=== PATIENT | female | born 1970 | race Caucasian/White ===

== ENCOUNTER 2017-01-17 16:09 | Emergency (ER) | payer OTHER ==
--- NOTE | 2017-01-17 16:50 | DIAGNOSTIC IMAGING REPORT ---
PROCEDURE: CT HEAD WITHOUT CONTRAST INDICATION: STROKE TECHNIQUE: Noncontrast axial images with sagittal and coronal reformations. COMPARISON: None. FINDINGS: Sulci, ventricular system, and brain parenchyma are normal. Bilateral basal ganglia dystrophic calcifications. No evidence of acute intracranial process. Visualized mastoids and sinuses are clear. IMPRESSION: 1. Negative non-enhanced head CT. 2. Findings discussed with Dr. Frazier at 04:39 p.m., [place] Standard Time
--- NOTE | 2017-01-17 16:51 | DIAGNOSTIC IMAGING REPORT ---
PROCEDURE: XR CHEST 1 VIEW INDICATION: CHEST PAIN. STROKE SYMPTOMS. TECHNIQUE: Portable AP view 04:42 p.m. COMPARISON: None. FINDINGS: Lungs are clear. Heart and mediastinum are normal. Thorax is normal. IMPRESSION: 1. Negative chest.
--- NOTE | 2017-01-17 17:34 | DIAGNOSTIC IMAGING REPORT ---
PROCEDURE: CTA HEAD AND NECK INDICATION: CHEST PAIN AND STROKE SYMPTOMS TECHNIQUE: 112 ml of Isovue 370 injected intravenously and axial images were obtained from the vertex through the upper mediastinum with 3D sagittal and coronal MIP reconstructions. COMPARISON: Head CT 01/17/2017. FINDINGS: AORTIC ARCH: Normal. RIGHT CAROTID SYSTEM: Normal. No evidence of dissection. LEFT CAROTID SYSTEM: Minor calcified plaque formation without stenosis. No evidence of dissection. VERTEBROBASILAR SYSTEM: Dominant left vertebral artery. INTRACRANIAL ANTERIOR CIRCULATION: Normal. No evidence of stenosis, occlusion or aneurysm. INTRACRANIAL POSTERIOR CIRCULATION: Normal. No evidence of stenosis, occlusion or aneurysm. IMPRESSION: 1. Minor calcified plaque formation of the left carotid bifurcation 2. Otherwise negative study 3. Results discussed with Dr. Frazier All CT scans at this facility use dose modulation, iterative reconstruction, and/or weight-based dosing when appropriate to reduce radiation dose to as low as reasonably achievable.
--- NOTE | 2017-01-17 17:41 | DIAGNOSTIC IMAGING REPORT ---
PROCEDURE: CTA THORAX WITH CONTRAST INDICATION: CHEST PAIN AND STROKE SYMPTOMS TECHNIQUE: 72 ml of Isovue 370 was injected intravenously and axial images were obtained of the entire thorax with 3D sagittal and coronal MIP reconstructions. COMPARISON: Chest x-ray 01/17/2017 FINDINGS: Normal thoracic aorta without dissection or aneurysm. Normal pulmonary arteries. Normal coronaries. Heart size is normal. Lungs are clear. No adenopathy or effusion. Calcified gallstones. Mild to moderate degenerative changes of the spine. IMPRESSION: 1. Normal CTA of the chest 2. Cholelithiasis 3. Results discussed with Dr. Frazier
--- NOTE | 2017-01-17 18:05 | ED ORDER SUMMARY ---
..... 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) (CP) (16:17 01/17/2017 Edmundo Ortiz) (Ack 16:18 LMuller) (16:36 JRomanelli R.N.) Troponin-I Urgent (16:18 01/17/2017 Edmundo Ortiz) (Ack 16:18 LMuller) (16:36 omanelli R.N.) Ammonia Level Urgent (16:18 01/17/2017 Edmundo Ortiz) (Ack 16:18 LMuller) (17:07 Sergio R.N.) TSH Urgent (16:18 01/17/2017 Edmundo Ortiz) (Ack 16:18 LMuller) (16:36 omanelli R.N.) Urine Drug Screen Urgent (16:18 01/17/2017 Edmundo Ortiz) (Ack 16:18 LMuller) (16:35 omanelli R.N.) D-Dimer Urgent (16:18 01/17/2017 Edmundo Ortiz) (Ack 16:18 LMuller) (16:35 Anaelli R.N.) EKG - ER Stat (16:18 01/17/2017 Edmundo Ortiz) (Ack 16:18 LMuller) (16:34 omanelli R.N.) Pulse oximeter (16:18 01/17/2017 Edmundo Ortiz) (Ack 16:18 LMuller) (16:35 omanelli R.N.) POC Glucose (16:18 01/17/2017 Edmundo Ortiz) (Ack 16:18 LMuller) (17:07 Sergio R.N.) CTA Head and Neck (No) (N/A) Urgent (16:41 01/17/2017 Edmundo Ortiz) (Ack 16:45 LMuller) (18:13 MCampbell) CTA Thorax w Cont (No) (N/A) Urgent (16:41 01/17/2017 Edmundo Ortiz) (Ack 16:45 LMuller) (17:41 Sergio R.N.) Cardiac Panel Stat (17:06 01/17/2017 Sergio Trivedi verbal order read back to Edmundo Ortiz) (17:08 LMuller) Troponin-I (redraw 2 hours after first trop drawn) Urgent (17:40 01/17/2017 Edmundo Ortiz) (Ack 17:46 LMuller) (18:29 LMuller) MEDICATION ORDERS: Enalaprilat IV 1.25 mg (HIGH ALERT MEDICATION, NOW) (16:51 01/17/2017 Edmundo Ortiz) (17:08 Sergio Munguia.N.) IV FLUIDS: IV Saline Lock (16:18 01/17/2017 Edmundo Ortiz) (16:35 Sergio Munguia.Nadia.) Labetalol IV 20 mg (HIGH ALERT MEDICATION, NOW) (16:25 01/17/2017 Edmundo Ortiz) (16:45 Sergio BrianN.) Morphine IV 4 mg (HIGH ALERT MEDICATION, NOW) (16:46 01/17/2017 Edmundo Ortiz) (17:09 Sergio R.N.) Esmolol Drip IV : initial bolus 500 mcg/kg, then 50 mcg/kg/min (HIGH ALERT MEDICATION, NOW, TITRATE) (max 300 mcg/min for drip) (16:47 01/17/2017 Edmundo Ortiz) (Cancelled: Physician Order20:17 Sergio R.N.) Labetalol IV 20 mg (HIGH ALERT MEDICATION, NOW) (17:34 01/17/2017 Edmundo Ortiz) (17:41 Sergio R.N.) TPA Protocol (Stroke) 0.9 mg/kg (HIGH ALERT MEDICATION, NOW, Stroke 0.9 mg/kg, Max Dose is 90mg, Bolus-10% of total dose given over 1min, Infusion-remaining 90% of total dose given over 59) (18:04 01/17/2017 Edmundo rOtiz) (18:09 Sergio Trivedi) ORDER SHEET NOTES: [Electronically signed by Kenroy Haas R.N. (20:01/17/2017)] [Electronically signed by Delbert Frazier Dr. (13:11 01/21/2017)] [Electronically locked/signed by Kenroy Haas R.N. (20:01/17/2017)]
--- NOTE | 2017-01-17 18:05 | ED ORDER SUMMARY ---
..... 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) (CP) (16:17 01/17/2017 Edmundo Ortiz) (Ack 16:18 LMuller) (16:36 JRomanelli R.N.) Troponin-I Urgent (16:18 01/17/2017 Edmundo Ortiz) (Ack 16:18 LMuller) (16:36 omanelli R.N.) Ammonia Level Urgent (16:18 01/17/2017 Edmundo Ortiz) (Ack 16:18 LMuller) (17:07 Sergio R.N.) TSH Urgent (16:18 01/17/2017 Edmundo Ortiz) (Ack 16:18 LMuller) (16:36 omanelli R.N.) Urine Drug Screen Urgent (16:18 01/17/2017 Edmundo Ortiz) (Ack 16:18 LMuller) (16:35 omanelli R.N.) D-Dimer Urgent (16:18 01/17/2017 Edmundo Ortiz) (Ack 16:18 LMuller) (16:35 Anaelli R.N.) EKG - ER Stat (16:18 01/17/2017 Edmundo Ortiz) (Ack 16:18 LMuller) (16:34 omanelli R.N.) Pulse oximeter (16:18 01/17/2017 Edmundo Ortiz) (Ack 16:18 LMuller) (16:35 omanelli R.N.) POC Glucose (16:18 01/17/2017 Edmundo Ortiz) (Ack 16:18 LMuller) (17:07 Sergio R.N.) CTA Head and Neck (No) (N/A) Urgent (16:41 01/17/2017 Edmundo Ortiz) (Ack 16:45 LMuller) (18:13 MCampbell) CTA Thorax w Cont (No) (N/A) Urgent (16:41 01/17/2017 Edmundo Ortiz) (Ack 16:45 LMuller) (17:41 Sergio R.N.) Cardiac Panel Stat (17:06 01/17/2017 Sergio Trivedi verbal order read back to Edmundo Ortiz) (17:08 LMuller) Troponin-I (redraw 2 hours after first trop drawn) Urgent (17:40 01/17/2017 Edmundo Ortiz) (Ack 17:46 LMuller) (18:29 LMuller) MEDICATION ORDERS: Enalaprilat IV 1.25 mg (HIGH ALERT MEDICATION, NOW) (16:51 01/17/2017 Edmundo Ortiz) (17:08 Sergio Munguia.N.) IV FLUIDS: IV Saline Lock (16:18 01/17/2017 Edmundo Ortiz) (16:35 Sergio Munguia.Nadia.) Labetalol IV 20 mg (HIGH ALERT MEDICATION, NOW) (16:25 01/17/2017 Edmundo Ortiz) (16:45 Sergio BrianN.) Morphine IV 4 mg (HIGH ALERT MEDICATION, NOW) (16:46 01/17/2017 Edmundo Ortiz) (17:09 Sergio R.N.) Esmolol Drip IV : initial bolus 500 mcg/kg, then 50 mcg/kg/min (HIGH ALERT MEDICATION, NOW, TITRATE) (max 300 mcg/min for drip) (16:47 01/17/2017 Edmundo Ortiz) (Cancelled: Physician Order20:17 Sergio R.N.) Labetalol IV 20 mg (HIGH ALERT MEDICATION, NOW) (17:34 01/17/2017 Edmundo Ortiz) (17:41 Sergio R.N.) TPA Protocol (Stroke) 0.9 mg/kg (HIGH ALERT MEDICATION, NOW, Stroke 0.9 mg/kg, Max Dose is 90mg, Bolus-10% of total dose given over 1min, Infusion-remaining 90% of total dose given over 59) (18:04 01/17/2017 Edmundo Ortiz) (18:09 Sergio Trivedi) ORDER SHEET NOTES: [Electronically signed by Kenroy Haas R.N. (20:01/17/2017)] [Electronically signed by Delbert Frazier Dr. (13:11 01/21/2017)] [Electronically locked/signed by Kenroy Haas R.N. (20:01/17/2017)]
--- NOTE | 2017-01-17 18:05 | ED NURSING NOTES ---
Clinical Report - Nurses [facility] [address] [place] [address] 01/17/2017 16:14 Patient: ELIZA MEDRANO TRIAGE Triage time 16:15 Jan 17 2017. Acuity: LEVEL 3. Chief Complaint: ALTERED MENTAL STATUS. Alert. UMER COMA SCORE: [place] Coma Scale: 14- eyes open spontaneously (4); best verbal response- oriented x 4 (5); best motor response- localizes to pain (5). --16:31 Kenroy Haas R.N. 16:21 01/17/17. BP: 192/88. HR: 71. RR: 16. O2 saturation: 99% on room air. Temp: 98.1 F. Pain level now: 03/07. Additional comments: ESPINOSA pain. --16:31 Kenroy Haas R.N. <<STRICKEN ENTRY-- 16:20. --16:32 Kenroy Haas R.N. --END STRIKE>> Correction --16:32 Kenroy Haas R.N. Weight: 106.5 kg stated. Height/Length: 62 inches Per Patient. BMI: 43. --16:25 Kenroy Haas R.N. Medications Albuterol Sulfate Inhalation 2 puffs, PRN. --16:26 Kenroy Haas R.N. Medication/allergy information source: the patient. --16:31 Kenroy Haas R.N. Allergies Silver Nitrate. --16:27 Kenroy Haas R.N. Amoxicillin. --16:27 Kenroy Haas R.N. History Arrived by private vehicle. Historian: patient. Accompanied by spouse. ( Altered Mentation first noticed by her ~ 3 hours ago.). This started about 3 hours ago. She has had weakness and mild trouble walking. 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 PAST MEDICAL HX: Hypertension. Immunizations: status is unknown. ( Asthma). SURGERY HX: ( Bilat Ankles). SOCIAL HX: Never smoker. Alcohol use; consumes two wine weekly. History of drug use. (CBD oil for pain relief). FALL RISK ASSESSMENT: Fall risk assessment completed. No fall risk identified. NUTRITIONAL RISK ASSESSMENT: The nutritional risk assessment revealed no deficiencies. FUNCTIONAL ASSESSMENT: Functional assessment: no impairments noted. LEARNING NEEDS ASSESSMENT: The learning needs assessment revealed no barriers. SKIN INTEGRITY ASSESSMENT: Skin integrity risk assessment completed. No skin integrity risk identified. --16:31 Kenroy Haas R.N. ( CODE STROKE CALLED). --16:32 Kenroy Haas R.N. Interventions ID band on patient. To treatment room. --16:31 Kenroy Haas R.N. PHYSICAL ASSESSMENT Ambulatory to room. GENERAL / NEURO / PSYCH: Alert. Oriented X 4. Patient's speech is slurred. Patient appears well-nourished and neat and clean. ( Dizziness). CVS: Normal sinus rhythm noted. GI / : Abdomen soft and nontender. SKIN: Skin is warm and dry. Normal skin turgor. --16:33 Kenroy Haas R.N. NURSING PROGRESS NOTES 16:20 01/17/2017 Site #1 started via IV in the right antecubital space with an 20g angiocath, with aseptic technique and good blood return; one attempt. Blood drawn: rainbow set. Labeled in the presence of the patient and sent to the lab. Saline lock flushed with 10 mL saline. --16:35 Kenroy Haas R.N. 16:25 01/17/17. Patient transported to CT. --16:31 Kenroy Haas R.N. 16:15. ( Neuro Exam by Dr. Marte). --16:34 Kenroy Haas R.N. 16:35. ( CXR in room). --16:39 Kenroy Haas R.N. 16:35. Patient transported to CT. Patient returned from CT by stretcher with tech. --16:39 Kenroy Haas R.N. 16:36 01/17/2017 Site #2 started via IV in the left antecubital space with an 20g angiocath, with good blood return; one attempt. Saline lock flushed with 10 mL saline. --16:46 Kenroy Haas R.N. 16:40 01/17/2017 Labetalol IVP 20 mg given over 2 minute(s) via site #1. Allergies verified and confirmed 5 rights. IV patency established. IV site checked: no pain, redness, or swelling. IV flushed thoroughly pre- and post-medication administration. IVP given by RN. --16:45 Kenroy Haas R.N. 16:54 01/17/17. Finger stick glucose: 98 mg/dL; performed by nurse; result shown to the ED physician. --16:54 Kenroy Haas R.N. 16:45 01/17/17. BP: 224/94. HR: 71. RR: 17. O2 saturation: 100% on room air. --17:04 Kenroy Haas R.N. 17:00 01/17/17. BP: 186/94. HR: 66. RR: 16. O2 saturation: 100% on room air. --17:06 Kenroy Haas R.N. Patient transported to CT by stretcher with tech. (For CTA). --17:07 Kenroy Haas R.N. 16:58 01/17/2017 Enalaprilat IVP 1.25 mg given over 2 minute(s) via site #2. Allergies verified and confirmed 5 rights. IV patency established. IV site checked: no pain, redness, or swelling. IV flushed thoroughly pre- and post-medication administration. IVP given by RN. --17:08 Kenroy Haas R.N. 17:04 01/17/2017 Morphine IVP 4 mg given over 2 minute(s) via site #2. Allergies verified, confirmed 5 rights and sedative warning given to the patient and patient's family. IV patency established. IV site checked: no pain, redness, or swelling. IV flushed thoroughly pre- and post-medication administration. IVP given by RN. --17:09 Kenroy Haas R.N. 17:31 01/17/2017 Labetalol IVP 20 mg given over 2 minute(s) via site #2. --17:41 Kenroy Haas R.N. EKG time: (9434). EKG was performed by a tech and shown to the ED physician. --17:43 Radha Lim ER Tech1 17:45 01/17/17. BP: 184/98. HR: 69. RR: 16. O2 saturation: 100% on room air. --17:49 Kenroy Haas R.N. 18:04 01/17/2017 Started 81 mg of TPA Protocol (Stroke) IVPB in bag #1 81 mL; bolus of 9 mg over 60 second(s) then at 81 mL/hr over 60 minute(s) via site #2 via IV pump. Allergies verified and confirmed 5 rights. IV patency established. IV site checked: no pain, redness, or swelling. IV flushed thoroughly pre- and post-medication administration. --18:09 Kenroy Haas R.N. 18:10 01/17/17. BP: 181/87. HR: 69. RR: 16. O2 saturation: 98% on room air. Pain level now: 0/10. --18:23 Kenroy Haas R.N. 18:30 01/17/2017 Site #[address] upon transfer; patent. Good blood return present. Flushed with 10 mL saline; flushes easily. --20:19 Kenroy Haas R.N. 18:30 01/17/2017 Site #[address] upon transfer; patent, no pain and no signs of infection or infiltration. Good blood return present (IV infusing in this site.). --20:20 Kenroy Haas R.N. 18:30 01/17/2017 TPA Protocol (Stroke) IVPB Continued: upon transfer at the rate of 81 mL/hr. 40 mL remaining bag #1. IV patency established. IV site checked: no pain, redness, or swelling. IV flushed thoroughly. (TPA). --20:22 Kenroy Haas R.N. DISPOSITION / DISCHARGE 18:30. Transferred to [facility]. Summary of care provided to transport team and transfer facility via paper and fax. Transported via ambulance by transport team with monitor and IV. Patient's personal items; items were placed in belongings bag and given to the spouse. --20:16 Kenroy Haas R.N. Departure time: 1830. --20:16 Kenroy Haas R.N. 18:25 01/17/17. BP: 180/90. HR: 70. RR: 16. O2 saturation: 99% on room air. Temp: 98.4 F. Pain level now: 0/10. --20:29 Kenroy Haas R.N. Locked/Released at 01/17/2017 20:29 by Kenroy Haas R.N.
--- NOTE | 2017-01-17 18:05 | ED NURSING NOTES ---
Clinical Report - Nurses [facility] [address] [place] [address] 01/17/2017 16:14 Patient: ELIZA MEDRANO TRIAGE Triage time 16:15 Jan 17 2017. Acuity: LEVEL 3. Chief Complaint: ALTERED MENTAL STATUS. Alert. UMER COMA SCORE: [place] Coma Scale: 14- eyes open spontaneously (4); best verbal response- oriented x 4 (5); best motor response- localizes to pain (5). --16:31 Kenroy Haas R.N. 16:21 01/17/17. BP: 192/88. HR: 71. RR: 16. O2 saturation: 99% on room air. Temp: 98.1 F. Pain level now: 03/07. Additional comments: ESPINOSA pain. --16:31 Kenroy Haas R.N. <<STRICKEN ENTRY-- 16:20. --16:32 Kenroy Haas R.N. --END STRIKE>> Correction --16:32 Kenroy Haas R.N. Weight: 106.5 kg stated. Height/Length: 62 inches Per Patient. BMI: 43. --16:25 Kenroy Haas R.N. Medications Albuterol Sulfate Inhalation 2 puffs, PRN. --16:26 Kenroy Haas R.N. Medication/allergy information source: the patient. --16:31 Kenroy Haas R.N. Allergies Silver Nitrate. --16:27 Kenroy Haas R.N. Amoxicillin. --16:27 Kenroy Haas R.N. History Arrived by private vehicle. Historian: patient. Accompanied by spouse. ( Altered Mentation first noticed by her ~ 3 hours ago.). This started about 3 hours ago. She has had weakness and mild trouble walking. 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 PAST MEDICAL HX: Hypertension. Immunizations: status is unknown. ( Asthma). SURGERY HX: ( Bilat Ankles). SOCIAL HX: Never smoker. Alcohol use; consumes two wine weekly. History of drug use. (CBD oil for pain relief). FALL RISK ASSESSMENT: Fall risk assessment completed. No fall risk identified. NUTRITIONAL RISK ASSESSMENT: The nutritional risk assessment revealed no deficiencies. FUNCTIONAL ASSESSMENT: Functional assessment: no impairments noted. LEARNING NEEDS ASSESSMENT: The learning needs assessment revealed no barriers. SKIN INTEGRITY ASSESSMENT: Skin integrity risk assessment completed. No skin integrity risk identified. --16:31 Kenroy Haas R.N. ( CODE STROKE CALLED). --16:32 Kenroy Haas R.N. Interventions ID band on patient. To treatment room. --16:31 Kenroy Haas R.N. PHYSICAL ASSESSMENT Ambulatory to room. GENERAL / NEURO / PSYCH: Alert. Oriented X 4. Patient's speech is slurred. Patient appears well-nourished and neat and clean. ( Dizziness). CVS: Normal sinus rhythm noted. GI / : Abdomen soft and nontender. SKIN: Skin is warm and dry. Normal skin turgor. --16:33 Kenroy Haas R.N. NURSING PROGRESS NOTES 16:20 01/17/2017 Site #1 started via IV in the right antecubital space with an 20g angiocath, with aseptic technique and good blood return; one attempt. Blood drawn: rainbow set. Labeled in the presence of the patient and sent to the lab. Saline lock flushed with 10 mL saline. --16:35 Kenroy Haas R.N. 16:25 01/17/17. Patient transported to CT. --16:31 Kenroy Haas R.N. 16:15. ( Neuro Exam by Dr. Marte). --16:34 Kenroy Haas R.N. 16:35. ( CXR in room). --16:39 Kenroy Haas R.N. 16:35. Patient transported to CT. Patient returned from CT by stretcher with tech. --16:39 Kenroy Haas R.N. 16:36 01/17/2017 Site #2 started via IV in the left antecubital space with an 20g angiocath, with good blood return; one attempt. Saline lock flushed with 10 mL saline. --16:46 Kenroy Haas R.N. 16:40 01/17/2017 Labetalol IVP 20 mg given over 2 minute(s) via site #1. Allergies verified and confirmed 5 rights. IV patency established. IV site checked: no pain, redness, or swelling. IV flushed thoroughly pre- and post-medication administration. IVP given by RN. --16:45 Kenroy Haas R.N. 16:54 01/17/17. Finger stick glucose: 98 mg/dL; performed by nurse; result shown to the ED physician. --16:54 Kenroy Haas R.N. 16:45 01/17/17. BP: 224/94. HR: 71. RR: 17. O2 saturation: 100% on room air. --17:04 Kenroy Haas R.N. 17:00 01/17/17. BP: 186/94. HR: 66. RR: 16. O2 saturation: 100% on room air. --17:06 Kenroy Haas R.N. Patient transported to CT by stretcher with tech. (For CTA). --17:07 Kenroy Haas R.N. 16:58 01/17/2017 Enalaprilat IVP 1.25 mg given over 2 minute(s) via site #2. Allergies verified and confirmed 5 rights. IV patency established. IV site checked: no pain, redness, or swelling. IV flushed thoroughly pre- and post-medication administration. IVP given by RN. --17:08 Kenroy Haas R.N. 17:04 01/17/2017 Morphine IVP 4 mg given over 2 minute(s) via site #2. Allergies verified, confirmed 5 rights and sedative warning given to the patient and patient's family. IV patency established. IV site checked: no pain, redness, or swelling. IV flushed thoroughly pre- and post-medication administration. IVP given by RN. --17:09 Kenroy Haas R.N. 17:31 01/17/2017 Labetalol IVP 20 mg given over 2 minute(s) via site #2. --17:41 Kenroy Haas R.N. EKG time: (3153). EKG was performed by a tech and shown to the ED physician. --17:43 Radha Lim ER Tech1 17:45 01/17/17. BP: 184/98. HR: 69. RR: 16. O2 saturation: 100% on room air. --17:49 Kenroy Haas R.N. 18:04 01/17/2017 Started 81 mg of TPA Protocol (Stroke) IVPB in bag #1 81 mL; bolus of 9 mg over 60 second(s) then at 81 mL/hr over 60 minute(s) via site #2 via IV pump. Allergies verified and confirmed 5 rights. IV patency established. IV site checked: no pain, redness, or swelling. IV flushed thoroughly pre- and post-medication administration. --18:09 Kenroy Haas R.N. 18:10 01/17/17. BP: 181/87. HR: 69. RR: 16. O2 saturation: 98% on room air. Pain level now: 0/10. --18:23 eKnroy Haas R.N. 18:30 01/17/2017 Site #[address] upon transfer; patent. Good blood return present. Flushed with 10 mL saline; flushes easily. --20:19 Kenroy Haas R.N. 18:30 01/17/2017 Site #[address] upon transfer; patent, no pain and no signs of infection or infiltration. Good blood return present (IV infusing in this site.). --20:20 Kenroy Haas R.N. 18:30 01/17/2017 TPA Protocol (Stroke) IVPB Continued: upon transfer at the rate of 81 mL/hr. 40 mL remaining bag #1. IV patency established. IV site checked: no pain, redness, or swelling. IV flushed thoroughly. (TPA). --20:22 Kenroy Haas R.N. DISPOSITION / DISCHARGE 18:30. Transferred to [facility]. Summary of care provided to transport team and transfer facility via paper and fax. Transported via ambulance by transport team with monitor and IV. Patient's personal items; items were placed in belongings bag and given to the spouse. --20:16 Kenroy Haas R.N. Departure time: 1830. --20:16 Kenroy Haas R.N. 18:25 01/17/17. BP: 180/90. HR: 70. RR: 16. O2 saturation: 99% on room air. Temp: 98.4 F. Pain level now: 0/10. --20:29 Kenroy Haas R.N. Locked/Released at 01/17/2017 20:29 by Kenroy Haas R.N.
--- NOTE | 2017-01-17 18:05 | ED CLINICAL REPORT ---
Clinical Report - Physicians/Mid Levels [facility] [address] [place] [address] 01/17/2017 16:14 Patient: ELIZA MEDRANO Time Seen: 1620. Arrived- By private vehicle. Historian- patient. HISTORY OF PRESENT ILLNESS Chief Complaint: IMPAIRED SPEECH. This started today around 2pm today and is still present (unchanged). It was abrupt in onset and has been constant but is not gone now. The patient has had weakness of the left arm, left hand, left leg and left foot. No numbness. She has had mild difficulty with speech (Difficulty with word finding and fluidity of speech). At its maximum deficit described as moderate. When seen in the E.D.,deficit described as moderate. The patient has had altered mental status. Usually is alert and oriented X3 and has normal mobility. Similar symptoms previously: None. Recent medical care: The patient was seen recently in a clinic (referred to the ED). REVIEW OF SYSTEMS The patient complains of moderate, pressure-like central chest pain, currently moderate. No similar symptoms previously. Denies radiation of chest pain to the left arm. No modifying factors or associated symptoms. The patient has had difficulty breathing. All systems otherwise negative, except as recorded above. PAST HISTORY See nurses notes. Medications: Albuterol Sulfate Inhalation 2 puffs, PRN. Allergies: Amoxicillin. Silver Nitrate. SOCIAL HISTORY Never smoker. No alcohol use or drug use. No recent travel. Is a local resident. FAMILY HISTORY Negative. ADDITIONAL NOTES The nursing notes have been reviewed. PHYSICAL EXAM Vital Signs: 01/17/2017 16:21 BP: 192/88. HR: 71. RR: 16. O2 saturation: 99%. Temp: 98.1 F. Pain level now: 7/10. Blood pressure normal. Oxygen saturation normal. Appearance: Alert. No acute distress. Head: Head atraumatic. Eyes: Pupils equal, round and reactive to light. ENT: Normal ENT inspection. Airway intact. Pharynx normal. Neck: Normal inspection. Neck supple. CVS: Normal heart rate and rhythm. Heart sounds normal. Pulses normal. Respiratory: No respiratory distress. Breath sounds normal. Abdomen: Soft and nontender. No organomegaly. Skin: Skin warm and dry. Normal skin color. No rash. Normal skin turgor. Extremities: Extremities exhibit normal ROM. No lower extremity edema. Neuro: Alert. Oriented X 3. Mild dysphasia and dysarthria. Cranial nerves normal (as tested). No cerebellar findings. No sensory deficit. (mild 4+/5 strength to the left arm and leg. 5/5 on the right.). LABS, X-RAYS, AND EKG EKG: No acute ischemia. Normal EKG. Normal sinus rhythm. Rate: 71. Normal P waves. Normal ARYAN. Normal QRS complex. Normal axis. Normal ST and T waves, QT and QTc. The study has been interpreted contemporaneously. The study has been independently viewed by me. The EKG appears to be a good tracing. Chest X-ray: (PROCEDURE: XR CHEST 1 VIEW INDICATION: CHEST PAIN. STROKE SYMPTOMS. TECHNIQUE: Portable AP view 04:42 p.m. COMPARISON: None. FINDINGS: Lungs are clear. Heart and mediastinum are normal. Thorax is normal. IMPRESSION: 1. Negative chest.). CTA Head: PROCEDURE: CTA HEAD AND NECK INDICATION: CHEST PAIN AND STROKE SYMPTOMS TECHNIQUE: 112 ml of Isovue 370 injected intravenously and axial images were obtained from the vertex through the upper mediastinum with 3D sagittal and coronal MIP reconstructions. COMPARISON: Head CT 01/17/2017. FINDINGS: AORTIC ARCH: Normal. RIGHT CAROTID SYSTEM: Normal. No evidence of dissection. LEFT CAROTID SYSTEM: Minor calcified plaque formation without stenosis. No evidence of dissection. VERTEBROBASILAR SYSTEM: Dominant left vertebral artery. INTRACRANIAL ANTERIOR CIRCULATION: Normal. No evidence of stenosis, occlusion or aneurysm. INTRACRANIAL POSTERIOR CIRCULATION: Normal. No evidence of stenosis, occlusion or aneurysm. IMPRESSION: 1. Minor calcified plaque formation of the left carotid bifurcation 2. Otherwise negative study. The study was independently viewed by me and interpreted by the radiologist. The study was discussed with the radiologist (via phone and pacs). CT Head: (OCEDURE: CT HEAD WITHOUT CONTRAST INDICATION: STROKE TECHNIQUE: Noncontrast axial images with sagittal and coronal reformations. COMPARISON: None. FINDINGS: Sulci, ventricular system, and brain parenchyma are normal. Bilateral basal ganglia dystrophic calcifications. No evidence of acute intracranial process. Visualized mastoids and sinuses are clear. IMPRESSION: 1. Negative non-enhanced head CT.). Chest CT: (PROCEDURE: CTA THORAX WITH CONTRAST INDICATION: CHEST PAIN AND STROKE SYMPTOMS TECHNIQUE: 72 ml of Isovue 370 was injected intravenously and axial images were obtained of the entire thorax with 3D sagittal and coronal MIP reconstructions. COMPARISON: Chest x-ray 01/17/2017 FINDINGS: Normal thoracic aorta without dissection or aneurysm. Normal pulmonary arteries. Normal coronaries. Heart size is normal. Lungs are clear. No adenopathy or effusion. Calcified gallstones. Mild to moderate degenerative changes of the spine. IMPRESSION: 1. Normal CTA of the chest 2. Cholelithiasis). Laboratory Tests: CBC w Diff: (NEO: 01/17/2017 16:30) ( MsgRcvd 01/17/2017 17:22) Final results Test Result Flag Units (Reference) WHITE BLOOD COUNT 8.2 K/uL (4.5-11.5) RED BLOOD COUNT 4.48 M/uL (4.00-5.20) HEMOGLOBIN 13.6 gm/dL (12.0-16.0) HEMATOCRIT 40.2 % (36.0-46.0) MEAN CELL VOLUME 90 fL (80-100) MEAN CORPUSCULAR HGB 30 pg (26-34) MEAN CORPUSCULAR HGB CONC 34 g/dL (31-37) RED CELL DISTRIBUTION WIDTH 12.1 % (11.6-14.8) PLATELET COUNT 257 K/uL (150-400) NEUTROPHIL % 64.2 % (50-75) LYMPH % 26.9 % (25-40) MONO % 4.7 % (3-14) EOSINOPHIL % 3.6 % (0-4) BASOPHIL % 0.6 % (0-2) CBC w Diff: (NEO: 01/17/2017 16:50) ( MsgRcvd 01/17/2017 17:15) Final results Test Result Flag Units (Reference) WHITE BLOOD COUNT 8.2 K/uL (4.5-11.5) RED BLOOD COUNT 4.48 M/uL (4.00-5.20) HEMOGLOBIN 13.6 gm/dL (12.0-16.0) HEMATOCRIT 40.2 % (36.0-46.0) MEAN CELL VOLUME 90 fL (80-100) MEAN CORPUSCULAR HGB 30 pg (26-34) MEAN CORPUSCULAR HGB CONC 34 g/dL (31-37) RED CELL DISTRIBUTION WIDTH 12.1 % (11.6-14.8) PLATELET COUNT 257 K/uL (150-400) NEUTROPHIL % 64.2 % (50-75) LYMPH % 26.9 % (25-40) MONO % 4.7 % (3-14) EOSINOPHIL % 3.6 % (0-4) BASOPHIL % 0.6 % (0-2) [id number]: (NEO: 01/17/2017 16:30) ( [facility] 01/17/2017 17:14) Final results Test Result Flag Units (Reference) D-DIMER QUANTITATIVE < 0.27 L ug/mLFEU (0.27-0.52) The primary value of this quantitative assay relates toits negative predictive value (i.e. exclusion) of pulmonaryembolism/deep vein thrombosis/DIC.Elevated levels of d-dimer may also occur with:, age, cancer, inflammation, liver disease,post-op, infection, hematoma, coronary disease, peripheralarteriopathy, bleeding disorders and thrombolytic treatment.Results should be correlated with other clinical andradiological data.Testing Methodology: Latex Immunoassay Urine Drug Screen: (NEO: 01/17/2017 16:25) ( [facility] [place] 01/17/2017 17:08) Final results Test Result Flag Units (Reference) AMPHETAMINE/METHAMPHETAMINE NEGATIVE (NEGATIVE) BARBITURATE NEGATIVE (NEGATIVE) BENZODIAZEPINE NEGATIVE (NEGATIVE) CANNABINOID POSITIVE H (NEGATIVE) COCAINE NEGATIVE (NEGATIVE) ECSTASY NEGATIVE (NEGATIVE) METHADONE NEGATIVE (NEGATIVE) OPIATE NEGATIVE (NEGATIVE) The urine drug screen is a qualitative screening test fordrug overdose and abuse. All screen results should beconsidered as presumptive.Drugs screened for are as follows:BenzodiazepinesCocaineAmphetamines/MetamphetaminesTHC (Tetrahydrocannabinol)OpiatesBarbituratesEcstasyMethadonePositive results are unconfirmed. For confirmation, notifythe lab for the specimen to be sent to the reference lab.All confirmations must be performed by a differentmethodology.The ingestion of natural herbal and plant productscontaining Ephedra/Ephedra metabolites can produce in urineone or more substances capable of cross reacting withamphetamine/methamphetamine immunoassays. These testsprovide a preliminary result only. A more specificalternative chemical method must be used to obtain aconfirmed analytical result. Ammonia Level: (NEO: 01/17/2017 16:50) ( MsgRcvd 01/17/2017 17:45) Final results Test Result Flag Units (Reference) AMMONIA 18 umol/L (11-32) CMP: (NEO: 01/17/2017 16:30) ( FlgRcvd 01/17/2017 17:27) Final results Test Result Flag Units (Reference) GLUCOSE 99 mg/dL (70-110) BUN 15 mg/dL (7-18) CREATININE 0.8 mg/dL (0.6-1.3) Estimated GFR >60 mL/min Estimated GFR- >60 mL/min Note: Persistent reduction over 3 months in eGFR<60 mL/min/1.73 m2 defines CKD. Patients with eGFR values>=60 mL/min/1.73 m2 may also have CKD if evidence ofpersistent proteinuria. Additional information may be foundat www.[email or web address].org. SODIUM 142 mmol/L (136-145) POTASSIUM 3.3 L mmol/L (3.5-5.1) CHLORIDE 105 mmol/L (98-107) CARBON DIOXIDE 27 mmol/L (21-32) CALCIUM 9.4 mg/dL (8.5-10.1) TOTAL PROTEIN 7.2 g/dL (6.4-8.2) ALBUMIN 3.6 g/dL (3.3-5.0) BILIRUBIN, TOTAL 0.4 mg/dL (0.0-1.0) ALKALINE PHOSPHATASE 70 U/L (46-116) AST (SGOT) 15 U/L (15-37) ALT (SGPT) 20 U/L (12-78) MAGNESIUM 2.3 mg/dL (1.8-2.4) CPK 47 U/L (24-260) TROPONIN I <0.05 L ng/mL (0.00-1.5) TROPONIN REFERENCE RANGE:<0.1 NEGATIVE0.1-1.5 INDETERMINANT>1.5 POSITIVE THYROID STIMULATING HORMONE 3.366 uIU/mL (0.34-3.74) . PROGRESS AND PROCEDURES Course of Care: patient is a pleasant 46 yo female presenting for stroke symptoms. patient with difficulty with speech and left sided weakness. Patient with NIH stroke scale of 4. patient with chest pain and hypertension. needed to evaluate for thoracic AA or carotid disection as well. Initial CT of the head negative. CTA added afterwards. No signs of acute hemorrhagic stroke. BP difficult to control. Work up of CTA negative. Called to radiology to get the reads immediately due to the time course. Patient otherwise in no acute distress. BP improved. Spoke with stroke neuro at [facility]. patient to be accepted. recommended TPA. spoke with patient and informed consent obtained. patient given TPA with stroke neuros recs after discussion with patient about risks and benefits. repeat exam unchanged. BP continues to be controlled. obtained informed consent for transfer. patient stable for transport. repeat trop pending given chest pain. Patient transferred. prior to transfer, patient with better fluidity of speech. She reports it being much easier to formulate sentences and speak clearly. Critical care performed (60 minutes). Time is exclusive of separately billable procedures. Time includes: direct patient care, patient reassessment, coordination of patient care, interpretation of data (laboratory data), review of patient's medical records, medical consultation and documentation of patient care. Consult obtained. stroke neuro. Disposition: Benefits, risks and alternatives to transfer explained to patient. Transferred to [facility]. CLINICAL IMPRESSION acute CVA with left sided deficits hypertensive emergency chest pain, acute substernal. (Electronically signed by Delbert Frazier Dr. 01/21/2017 13:11)
--- NOTE | 2017-01-21 13:11 | ED MAR SUMMARY ---
..... Medication Administration Record [facility] [address] [place] [address] Patient: ELIZA MEDRANO Visit ID: [id number] 46y, F Weight: 106.5 kg Height/Length: 62 in BMI: 43 ALLERGIES: Amoxicillin, Silver Nitrate Given 16:40 01/17/2017 Kenroy Haas R.N. Medication Administered: LABETALOL [IVP], Dose: 20 mg IVP over 2 minute(s), Site: #1 right AC. Medication Ordered: Labetalol IV 20 mg (HIGH ALERT MEDICATION, NOW). Given 16:58 01/17/2017 Kenroy Haas R.N. Medication Administered: ENALAPRILAT [IVP], Dose: 1.25 mg IVP over 2 minute(s), Site: #2 left AC. Medication Ordered: Enalaprilat IV 1.25 mg (HIGH ALERT MEDICATION, NOW). Given 17:04 01/17/2017 Kenroy Haas R.N. Medication Administered: MORPHINE [IVP], Dose: 4 mg IVP over 2 minute(s), Site: #2 left AC. Medication Ordered: Morphine IV 4 mg (HIGH ALERT MEDICATION, NOW). Given 17:31 01/17/2017 Kenroy Haas R.N. Medication Administered: LABETALOL [IVP], Dose: 20 mg IVP over 2 minute(s), Site: #2 left AC. Medication Ordered: Labetalol IV 20 mg (HIGH ALERT MEDICATION, NOW). Start 18:04 01/17/2017 Kenroy Haas R.NKanika, Continued Upon Transfer 18:30 01/17/2017 Kenroy Haas R.N. Medication Administered: TPA PROTOCOL (STROKE), Dose: 81 mg IVPB over 60 minute(s), Rate: 81 mL/hr, Bolus: 9 mg over 60 second(s), Dispensed: 81 mL bag, Site: #2 left AC. Medication Ordered: TPA Protocol (Stroke) 0.9 mg/kg (HIGH ALERT MEDICATION, NOW, Stroke 0.9 mg/kg, Max Dose is 90mg, Bolus-10% of total dose given over 1min, Infusion-remaining 90% of total dose given over 59).
--- NOTE | 2017-01-21 13:11 | ED MED RECONCILIATION SUMMARY ---
Patient: ELIZA MEDRANO Medication Reconciliation Report [facility] VisitID: [id number] [address] [place] [address] 46y, F Registration Date/Time: 01/17/2017 Weight: 106.5 kg Height/Length: 62 in. BMI: 43.0 ALLERGIES: Amoxicillin, Silver Nitrate The patient's Home Medications are listed below: THE FOLLOWING MEDICATIONS NEED TO BE RECONCILED: Albuterol Sulfate Inhalation 2 puffs, PRN The source(s) of the original Home Medication information: patient The following Medications were given to the patient in the Emergency Department: Labetalol [IVP] IVP 20 mg, administered: 01/17/2017 4:40:00 PM Enalaprilat [IVP] IVP 1.25 mg, administered: 01/17/2017 4:58:00 PM Morphine [IVP] IVP 4 mg, administered: 01/17/2017 5:04:00 PM Labetalol [IVP] IVP 20 mg, administered: 01/17/2017 5:31:00 PM TPA Protocol (Stroke) IVPB bolus 9 mg over 60 second(s), then 81 mg 81 mL/hr, administered: 01/17/2017 6:04:00 PM The following Medications were prescribed to the patient: None.
--- NOTE | 2017-01-21 13:11 | ED MAR SUMMARY ---
..... Medication Administration Record [facility] [address] [place] [address] Patient: ELIZA MEDRANO Visit ID: [id number] 46y, F Weight: 106.5 kg Height/Length: 62 in BMI: 43 ALLERGIES: Amoxicillin, Silver Nitrate Given 16:40 01/17/2017 Kenroy Haas R.N. Medication Administered: LABETALOL [IVP], Dose: 20 mg IVP over 2 minute(s), Site: #1 right AC. Medication Ordered: Labetalol IV 20 mg (HIGH ALERT MEDICATION, NOW). Given 16:58 01/17/2017 Kenroy Haas R.N. Medication Administered: ENALAPRILAT [IVP], Dose: 1.25 mg IVP over 2 minute(s), Site: #2 left AC. Medication Ordered: Enalaprilat IV 1.25 mg (HIGH ALERT MEDICATION, NOW). Given 17:04 01/17/2017 Kenroy Haas R.N. Medication Administered: MORPHINE [IVP], Dose: 4 mg IVP over 2 minute(s), Site: #2 left AC. Medication Ordered: Morphine IV 4 mg (HIGH ALERT MEDICATION, NOW). Given 17:31 01/17/2017 Kenroy Haas R.N. Medication Administered: LABETALOL [IVP], Dose: 20 mg IVP over 2 minute(s), Site: #2 left AC. Medication Ordered: Labetalol IV 20 mg (HIGH ALERT MEDICATION, NOW). Start 18:04 01/17/2017 Kenroy Haas R.NKanika, Continued Upon Transfer 18:30 01/17/2017 Kenroy Haas R.N. Medication Administered: TPA PROTOCOL (STROKE), Dose: 81 mg IVPB over 60 minute(s), Rate: 81 mL/hr, Bolus: 9 mg over 60 second(s), Dispensed: 81 mL bag, Site: #2 left AC. Medication Ordered: TPA Protocol (Stroke) 0.9 mg/kg (HIGH ALERT MEDICATION, NOW, Stroke 0.9 mg/kg, Max Dose is 90mg, Bolus-10% of total dose given over 1min, Infusion-remaining 90% of total dose given over 59).
--- NOTE | 2017-01-21 13:11 | ED DISCHARGE INSTRUCTIONS ---
Patient: ELIZA MEDRANO General Instructions Located Within [facility] VisitID: [id number] [address] [place] [address] 46y, F Registration Date/Time: 01/17/2017 acute CVA with left sided deficits hypertensive emergency chest pain, acute substernal. (Electronically signed by Delbert Frazier Dr. 01/21/2017 13:11)
--- NOTE | 2017-01-21 13:11 | ED MED RECONCILIATION SUMMARY ---
Patient: ELIZA MEDRANO Medication Reconciliation Report [facility] VisitID: [id number] [address] [place] [address] 46y, F Registration Date/Time: 01/17/2017 Weight: 106.5 kg Height/Length: 62 in. BMI: 43.0 ALLERGIES: Amoxicillin, Silver Nitrate The patient's Home Medications are listed below: THE FOLLOWING MEDICATIONS NEED TO BE RECONCILED: Albuterol Sulfate Inhalation 2 puffs, PRN The source(s) of the original Home Medication information: patient The following Medications were given to the patient in the Emergency Department: Labetalol [IVP] IVP 20 mg, administered: 01/17/2017 4:40:00 PM Enalaprilat [IVP] IVP 1.25 mg, administered: 01/17/2017 4:58:00 PM Morphine [IVP] IVP 4 mg, administered: 01/17/2017 5:04:00 PM Labetalol [IVP] IVP 20 mg, administered: 01/17/2017 5:31:00 PM TPA Protocol (Stroke) IVPB bolus 9 mg over 60 second(s), then 81 mg 81 mL/hr, administered: 01/17/2017 6:04:00 PM The following Medications were prescribed to the patient: None.
--- NOTE | 2017-01-21 13:11 | ED DISCHARGE INSTRUCTIONS ---
Patient: ELIZA MEDRANO General Instructions [facility] VisitID: [id number] [address] [place] [address] 46y, F Registration Date/Time: 01/17/2017 acute CVA with left sided deficits hypertensive emergency chest pain, acute substernal. (Electronically signed by Delbert Frazier Dr. 01/21/2017 13:11)
== END 2017-01-17 18:30 | disposition short-term general hospital (02) ==
LOC: ED SRH 16:09
DX: I69.354 Hemiplegia and hemiparesis following cerebral infarction affecting left non-dominant side (principal); R07.9 Chest pain, unspecified; R47.89 Other speech disturbances; I10 Essential (primary) hypertension
CPT/HCPCS: 90074; 90098; 90100; 90616; 91556; 91588; 92610; 92720; 92760; 92761; 92762; 92763; 92764; 92765; 92766; 92767; 93140; 95059